=== PATIENT | female | born 1995 | race Native Hawaiian/Other Pacific Islander ===

== ENCOUNTER 2020-09-28 15:18 | Emergency (ER) | payer BC ==
[2020-09-28 17:17] LABS: UA SPECIFIC GRAVITY <=1.005 (1.005-1.035); microscopic required? YES; urine erythrocyte 2+ (NEGATIVE)
[2020-09-28 17:58] LABS: PLATELET COUNT 328 x10^3mcL (130-400)
[2020-09-28 17:59] LABS: RED CELL DISTRIBUTION WIDTH 17.3 % (11.5-14.5)
[2020-09-28 19:17] VITALS: BP 117/57
== END 2020-09-28 19:17 | disposition home or self-care (01) ==
LOC: ED 15:18 → EDBD 15:18 → ED 19:17
PROVIDERS: Emergency Medicine
DX: O26.891 Other specified pregnancy related conditions, first trimester (principal); N93.9 Abnormal uterine and vaginal bleeding, unspecified; Z3A.01 Less than 8 weeks gestation of pregnancy

== ENCOUNTER 2020-10-21 08:05 | Emergency (ER) | payer BC ==
[~2020-10-21] VITALS: Ht 154.9 cm; Wt 117.0 kg
[2020-10-21 08:29] VITALS: Ht 154.9 cm; Wt 117.0 kg
[2020-10-21 08:58] LABS: BASOPHIL % 0.7 % (0-2); PLATELET COUNT 348 x10^3mcL (130-400)
[2020-10-21 09:04] LABS: RED CELL DISTRIBUTION WIDTH 17.2 % (11.5-14.5)
[2020-10-21 09:29] LABS: microscopic required? NO
[2020-10-21 09:41] LABS: UA SPECIFIC GRAVITY 1.025 (1.005-1.035); urine erythrocyte NEGATIVE (NEGATIVE)
[2020-10-21 12:44] VITALS: BP 108/52
== END 2020-10-21 12:44 | disposition home or self-care (01) ==
LOC: ED 08:05
PROVIDERS: Emergency Medicine
DX: O20.0 Threatened abortion (principal); D64.9 Anemia, unspecified; Z91.040 Latex allergy status; Z90.89 Acquired absence of other organs